=== PATIENT | male | born 1990 | race African-American/Black ===

== ENCOUNTER 2017-03-13 12:16 | Emergency (ER) | payer SELFPAY ==
[~2017-03-13] VITALS: Ht 188 cm; Wt 77.0 kg
[~2017-03-13 12:16] MED LIST: DICL75 PO; DOXY100T PO; SULF1TAB47 PO; Z.0.NO CURRENT MEDS
[2017-03-13 12:18] VITALS: BP 153/83; PULSE 92; RESP 16; TEMP 98.1; O2SAT 99
[2017-03-13] MEDS ORDERED: LORA-400 PO (14:39)
[2017-03-13] MEDS ORDERED: BENZ100 PO (14:41)
[2017-03-13] MEDS ORDERED: AZIT250T3 PO (14:41)
--- NOTE | 2017-03-13 14:43 | PD ---
HPI Chief Complaint: Cold / Flu Symptoms Time Seen by Provider: 14:41 Travel History International Travel<30 days: No Contact w/Intl Traveler<30days: No Traveled to known affect area: No History of Present Illness HPI 26-year-old male that presents to the ED for evaluation of cold like symptoms. Patient has had this for the past 2 days. Has body aches, sneezing and cough is productive. Congestion noted. Patient has sick contacts at home. Said they get chest pain with cough. No other medical issues. No recent travel. No asthma. Does not smoke. Has been taking OTC meds with minimal relief. No allergies to medication. Pain is minimal as 5 out of 10 only when he coughs. PFSH Past Medical History Tetanus Vaccination: Unknown Social History Alcohol Use: Yes (socially) Tobacco Use: Yes (10 cigarettes a day) Substance Use: No Allergies-Medications (Allergen,Severity, Reaction): Coded Allergies: No Known Allergies (Unverified , 01/19/12) Reported Meds & Prescriptions Reported Meds & Active Scripts Active Reported Claritin-D 24 HR (Loratadine-Pseudoephedrine 24 HR) 10-240 Mg Tab 1 Tab PO DAILY PRN Review of Systems Except as stated in HPI: all other systems reviewed are Neg Physical Exam Narrative GENERAL: Well-nourished, well-developed patient in no apparent distress. SKIN: Warm and dry. HEAD: Atraumatic. Normocephalic. EYES: Pupils equal and round reactive to light and accommodation. No scleral icterus. No injection or drainage. ENT: No nasal bleeding or discharge. Mucous membranes pink and moist. TMs are clear with no sign of infection or perforation. No mastoid tenderness. Ear canals are intact bilaterally. No lymphadenopathy. Nostril mucosa is red and moist with clear mucus noted. No sinus tenderness to palpation noted. Tonsils are not enlarged or swollen. No ulvua Deviation. Tongue is midline. NECK: Trachea midline. No JVD. No meningeal signs noted CARDIOVASCULAR: Regular rate and rhythm. RESPIRATORY: No accessory muscle use. Clear to auscultation. Breath sounds equal bilaterally. GASTROINTESTINAL: Abdomen soft, non-tender, nondistended. Hepatic and splenic margins not palpable. MUSCULOSKELETAL: Extremities without clubbing, cyanosis, or edema. No obvious deformities. NEUROLOGICAL: Awake and alert. No obvious cranial nerve deficits. Motor grossly within normal limits. Five out of 5 muscle strength in the arms and legs. Normal speech. PSYCHIATRIC: Appropriate mood and affect; insight and judgment normal. Data Data Last Documented VS Vital Signs Date Time Temp Pulse Resp B/P Pulse Ox O2 Delivery O2 Flow Rate FiO2 03/13/17 13:28 Nasal Cannula 03/13/17 12:18 98.1 92 16 153/83 99 Orders Influenzae A/B Antigen (03/13/17 14:16) MDM Medical Decision Making Medical Screen Exam Complete: Yes Emergency Medical Condition: Yes Medical Record Reviewed: Yes Differential Diagnosis Influenza versus viral illness versus pneumonia versus bronchitis Narrative Course 26-year-old male that presents to the ED for evaluation of cold like symptoms. Patient was properly examined and was found to have signs and symptoms very consistent appears to be collected symptoms. Acute bronchitis. We'll check for flu. Patient will be given a perception for azithromycin and Tessalon Perles. Told to follow with PCP. Take OTC medicines as needed. See ED worsening symptoms. Diagnosis Primary Impression: Bronchitis Patient Instructions: General Instructions Additional Instructions: Motrin and Tylenol for pain and fever. You can use dexv-flk-[id number] antihistamine as well as well as Mucinex as needed for runny nose and congestion. Cough drops for cough as needed. Drink plenty of fluids. Follow-up with PCP. See ED for worsening symptoms. Med/Other Pt SpecificInfo: Prescription(s) given Scripts Benzonatate (Tessalon Perles)100 Mg [id number] Mg PO TID PRN (COUGH) #20 CAP Prov:Joanna Singh MD 03/13/17 Azithromycin 250 Mg Dih378 Mg PO DIRECTED #6 TAB Take 2 tabs (500 mg) on day 1 then 1 tab daily x 4 days. Prov:Joanna Singh MD 03/13/17 Disposition: 01 DISCHARGE HOME Condition: Stable Jorge Reyes Mar 13, 2017 14:43
[2017-03-13 14:53] VITALS: BP 113/67; PULSE 110; RESP 22; O2SAT 89
== END 2017-03-13 14:58 | disposition home or self-care (01) ==
LOC: NEPC 12:16
DX: J40 Bronchitis, not specified as acute or chronic (principal); F17.210 Nicotine dependence, cigarettes, uncomplicated; Z79.899 Other long term (current) drug therapy
CPT/HCPCS: 87804; 99284

== ENCOUNTER 2017-03-30 16:34 | Emergency (ER) | payer MEDICAID ==
[~2017-03-30] VITALS: Ht 188 cm; Wt 130.0 kg
[~2017-03-30 16:34] MED LIST changes: +AZIT250T3 PO; +BENZ100 PO; -DICL75 PO; -DOXY100T PO; +LORA-400 PO; -SULF1TAB47 PO; -Z.0.NO CURRENT MEDS
[2017-03-30 16:36] VITALS: BP 138/78; PULSE 84; RESP 16; TEMP 98.2; O2SAT 98
--- NOTE | 2017-03-30 16:57 | PD ---
HPI Chief Complaint: Back/ Neck Pain or Injury Time Seen by Provider: 16:57 Travel History International Travel<30 days: No Contact w/Intl Traveler<30days: No Traveled to known affect area: No History of Present Illness HPI 26-year-old Afro-[place] male presents to emergency Department with lower lumbar back pain, spasm, and stiffness. Patient states he helped a friend his move yesterday and woke up this morning with low back pain, spasm, and stiffness. He denies numbness, tingling, bowel or bladder problems or radiation in the lower extremities. Patient has no history of back problem the past. He denies any specific injury but did move a lot of heavy furniture yesterday. Patient has not tried heat or ice or dsuj-yox-uiaguxy meds at this time. He states his pain is about a 7 out of 10. Worse with movement. He has no known drug allergies. [facility] Social History Alcohol Use: Yes (socially) Tobacco Use: Yes (10 cigarettes a day) Substance Use: No Allergies-Medications (Allergen,Severity, Reaction): Coded Allergies: No Known Allergies (Unverified , 03/30/17) Reported Meds & Prescriptions Reported Meds & Active Scripts Active Tessalon Perles (Benzonatate) 100 Mg Cap 100 Mg PO TID PRN Azithromycin 250 Mg Tab 250 Mg PO DIRECTED Take 2 tabs (500 mg) on day 1 then 1 tab daily x 4 days. Reported Claritin-D 24 HR (Loratadine-Pseudoephedrine 24 HR) 10-240 Mg Tab 1 Tab PO DAILY PRN Review of Systems Except as stated in HPI: all other systems reviewed are Neg General / Constitutional: No: Fever Eyes: No: Visual changes HENT: No: Headaches Cardiovascular: No: Chest Pain or Discomfort Respiratory: No: Shortness of Breath Gastrointestinal: No: Abdominal Pain Genitourinary: No: Dysuria Musculoskeletal: Positive: Myalgias, Limited ROM, Pain (see history present illness) Skin: No Rash Neurologic: No: Weakness Psychiatric: No: Depression Endocrine: No: Polydipsia Hematologic/Lymphatic: No: Easy Bruising Physical Exam Narrative GENERAL: Patient appears in mild distress. SKIN: Warm and dry. Normal color. Normal turgor. No rash. HEAD: Atraumatic. Normocephalic. EYES: Pupils equal and round. No scleral icterus. No injection or drainage. ENT: No nasal bleeding or discharge. Mucous membranes pink and moist. NECK: Trachea midline. Supple and nontender. CARDIOVASCULAR: Regular rate and rhythm. RESPIRATORY: No accessory muscle use. Clear to auscultation. Breath sounds equal bilaterally. MUSCULOSKELETAL: Extremities without clubbing, cyanosis, or edema. No obvious deformities. Patient is soft tissue tenderness along both lumbar paraspinous muscles without bony tenderness or step-off. There is palpable spasm is noted as well in the lumbar soft tissues. Negative straight leg raise pain bilaterally. No loss of strength. NEUROLOGICAL: Awake and alert. No obvious cranial nerve deficits. Motor grossly within normal limits. Five out of 5 muscle strength in the arms and legs. Normal speech. PSYCHIATRIC: Appropriate mood and affect; insight and judgment normal. Data Data Last Documented VS Vital Signs Date Time Temp Pulse Resp B/P Pulse Ox O2 Delivery O2 Flow Rate FiO2 03/30/17 16:36 98.2 84 16 138/78 98 Orders Ibuprofen (Motrin) (03/30/17 17:00) [facility] Medical Decision Making Medical Screen Exam Complete: Yes Emergency Medical Condition: Yes Differential Diagnosis Lumbago. Low back pain. Back spasm. Narrative Course Patient is given ibuprofen 800 mg by mouth now. Patient is continued on ibuprofen 600 mg 4 times a day #40. Patient also given acetaminophen 500 mg 2 tabs every 6 hours when necessary #60. Patient also given Flexeril 10 mg 1 up to 3 times daily #15. Patient is to use heat, ice, and gentle stretching. Patient follow up if symptoms do not improve or worsen. Diagnosis Primary Impression: Acute lumbar myofascial strain Qualified Code: S39.012A - Acute myofascial strain of lumbar region, initial encounter Referrals: [facility] Patient Instructions: Acute Low Back Pain (ED), General Instructions, Lower Back Exercises (ED) Additional Instructions: Patient is given ibuprofen 800 mg by mouth now. Patient is continued on ibuprofen 600 mg 4 times a day #40. Patient also given acetaminophen 500 mg 2 tabs every 6 hours when necessary #60. Patient also given Flexeril 10 mg 1 up to 3 times daily #15. Patient is to use heat, ice, and gentle stretching. Patient follow up if symptoms do not improve or worsen. Med/Other Pt SpecificInfo: Prescription(s) given Scripts Ibuprofen 600 Mg Sth309 Mg PO Q6H PRN (Pain/Inflammation) #40 TAB Prov:Jarocho Land MD 03/30/17 Cyclobenzaprine (Flexeril)10 Mg Tab10 Mg PO TID #15 TAB Prov:Jarocho Land MD 03/30/17 Acetaminophen (Non-Aspirin Pain Relief ES)500 Mg Tab1,000 Mg PO Q6HR PRN (PAIN) #60 TAB Prov:Jarocho Land MD 03/30/17 Disposition: 01 DISCHARGE HOME Condition: Stable Arik Lyle Mar 30, 2017 16:57
[2017-03-30] MEDS ORDERED: IBUP-232 PO (16:58)
[2017-03-30] MEDS ORDERED: NON-500T13 PO (16:58)
[2017-03-30] MEDS ORDERED: CYCL1TAB29 PO (16:58)
[2017-03-30] MEDS ORDERED: IBUPROFEN 800 MG TAB PO ONE (17:00)
== END 2017-03-30 17:17 | disposition home or self-care (01) ==
LOC: NEPK 16:34
DX: S39.012A Strain of muscle, fascia and tendon of lower back, initial encounter (principal); X50.9XXA Other and unspecified overexertion or strenuous movements or postures, initial encounter; F17.210 Nicotine dependence, cigarettes, uncomplicated
CPT/HCPCS: 99283